=== PATIENT | male | born 1955 | race Caucasian/White ===

== ENCOUNTER → 2016-09-27 | Day surgery (SDC) | payer OTHER ==
[~2016-09-27] MED LIST: BLOOD THINNER; BUPIVACAINE/EPINEPHRINE 0.25% 50 ML VIAL ONE; KETOROLAC TROMETHAMINE 30 MG/ML (IVP) VIAL IV PUSH ONE; LACTATED RINGER'S 1000 ML INJ 1,000 ML ONE; MEPERIDINE HCL 25 MG/ML VIAL ONE; MIDAZOLAM HCL 2 MG/2 ML VIAL ONE; ONDANSETRON HCL 4 MG/2 ML VIAL IV PUSH ONE; PROPOFOL 200 MG/20 ML AMP IV ONE; ceFAZolin 2 GM PREMIX 50 ML ONE
--- NOTE | 2016-09-27 15:31 | TN ---
cc: ANTONIO KRAMER MD DATE OF SURGERY 09/27/2016 PREOPERATIVE DIAGNOSIS Left inguinal hernia, reducible. POSTOPERATIVE DIAGNOSIS Left inguinal hernia, reducible. PROCEDURE PERFORMED Laparoscopic left inguinal hernia repair with mesh. SURGEON Dr. Antonio Kramer EVALUATION SPECIALIST See OR sheet ANESTHESIA GETA. IV FLUIDS Anesthesia sheet. ESTIMATED BLOOD LOSS 5 cc. DRAINS None. COMPLICATIONS None. WOUND CLASSIFICATION Clean. FINDINGS Indirect left inguinal hernia with cord lipoma. INDICATION The patient is a 61-year-old male with a 7-year history of left inguinal hernia. The patient notes the hernia was increasing in size and some discomfort and decision was for operative intervention including laparoscopic inguinal hernia repair. PROCEDURE IN DETAIL The patient was taken to the operating room and placed in the supine position. He was prepped and draped in usual sterile fashion after induction of general endotracheal anesthesia. Brief time-out done stating correct patient, procedure, surgical site and we were all in agreement with this. Attention first directed to the umbilicus where a vertical small stab taniya incision made approximately 0.5 cm. This was done with a 15 blade. Prior local anesthetic injected. Further dissection done with a hemostat and [place] retractor. The anterior rectus fascia was identified. A slit was made in the rectus fascia. A S retractor was used to get under the rectus abdominis muscle to identify the posterior peritoneum. The balloon dissector was used and advanced down to the pubic tubercle and inflated to 35 pumps to assist in the balloon dissection. Next the balloon was inflated under direct visualization, it was deflated and the (2:31) 12 mm port was placed and secured in place. The preperitoneal space was then inflated with 11 mm pneumoperitoneum. Two other trocars placed 5 mm one suprapubic followed by one mid pubic 5-mm trocar. Further dissection done in order to identify and preserve solares structures. The preperitoneal space was dissected out, Coopers ligament identified. The epigastrics were identified. The vas was dissected. The hernia sac was mobilized and dissected away from the cord structures. There was noted to be a cord lipoma and that was reduced as well. The patient noted to have an indirect inguinal hernia. The dissection carried out laterally to make sure there was adequate landing zone for the mesh. Following this adequate dissection, the dissection of the cord structures as well reduced in the peritoneal reflection away. Once we were satisfied with this, a piece of 6 x 6 [employer] mesh was used and cut in half and then a slit cut for cord structures. The mesh was then sewn in half in order to facilitate placing to the trocar. It was advanced through the 12-mm trocar, down to the pubic tubercle. It was positioned in place to adequately cover the indirect defect as well the direct and preperitoneal space. Several sutures tackers were placed to secure the mesh in place and the overlap superior to the structures was tacked to recreate the ring. Next the second piece of mesh was brought in to the peritoneal cavity and also laid superiorly on top of the previous mesh and tackers placed to secure this. Local anesthetic injected. Hemostasis was obtained. The preperitoneal space was then desufflated. Trocars were removed. The 12 mm trocar was closed with [id number] 0 Vicryl to the anterior fascia. Local anesthetic injected at all port sites. All port sites were closed with 4-0 Monocryl subcuticular sutures followed by Steri-Strips and sterile dressings. The patient tolerated procedure well. There was no intraoperative complication. The patient was x-rayed taken stable to the PACU. MD SUE Pierce/ABBY /3:03 PM /3:15 PM
== END | disposition home or self-care (01) ==
LOC: ESDC 11:46
PROVIDERS: ATTEND Surgery
DX: K40.90 Unilateral inguinal hernia, without obstruction or gangrene, not specified as recurrent (principal)
CPT/HCPCS: 00840; 49650; C1727; C1781; J0690; J1885; J2175; J2250; J2405; J3010; J7120